=== PATIENT | male | born 1945 | race Hispanic/Latino ===

== ENCOUNTER 2019-03-16 10:12 | Inpatient (IN) | payer MEDICARE | END 2019-03-18 13:31 | disposition home or self-care (01) | LOC: EDH 10:12 → EDHIP 12:01 → 4CH 18:27 | DX: I63.9 Cerebral infarction, unspecified (principal); G81.94 Hemiplegia, unspecified affecting left nondominant side; N18.3 Chronic kidney disease, stage 3 (moderate); Z90.5 Acquired absence of kidney ==